=== PATIENT | male | born 1990 | race Caucasian/White ===

== ENCOUNTER 2020-09-03 07:49 | Outpatient (CLI) | payer BC, SELFPAY ==
--- NOTE | 2020-09-03 08:00 | USCV_ITS ---
Gomez Parsons Age: 29 Gender: M : 1990 Exam Date: 09/03/2020 08:16 Ordering Phys: ALLYSSA Arthur APRN Technologist: Leyla Lozada Exam Location: [facility] [place]ication: Abnormal ECG BP: 118 / 78 HR: 60 Rhythm: Sinus Technical Quality: Adequate MEASUREMENTS (Male / Female) Normal Values 2D ECHO LV Diastolic Diameter PLAX 4.0 cm 4.2 - 5.9 / 3.9 - 5.3 cm LV Systolic Diameter PLAX 1.6 cm IVS Diastolic Thickness 1.1 cm 0.6 - 1.0 / 0.6 - 0.9 cm IVS Systolic Thickness 1.7 cm LVPW Diastolic Thickness 1.3 cm 0.6 - 1.0 / 0.6 - 0.9 cm LVPW Systolic Thickness 1.9 cm LV Ejection Fraction 2D Teich 90.1 % LV Ejection Fraction MOD 2C 55.3 % LV Ejection Fraction 2C AL 55.6 % LA Diameter 3.1 cm LA Width 2.7 cm LA Height 5.0 cm RA Width 3.5 cm RA Height 4.8 cm Aorta at Sinotubular Diameter 2.6 cm M-MODE LV Diastolic Diameter MM 5.0 cm 4.2 - 5.9 / 3.9 - 5.3 cm LV Systolic Diameter MM 3.0 cm LV Ejection Fraction MM Teich 71.9 % IVS Diastolic Thickness MM 0.9 cm 0.6 - 1.0 / 0.6 - 0.9 cm IVS Systolic Thickness MM 1.5 cm LVPW Diastolic Thickness MM 0.6 cm 0.6 - 1.0 / 0.6 - 0.9 cm LVPW Systolic Thickness MM 1.5 cm Aortic Annulus Diameter 2.6 cm LA Ao Ratio MM 1.3 MV E Point Septal Separation 0.4 cm DOPPLER AV Peak Velocity 127.0 cm/s LVOT Peak Velocity 100.0 cm/s MV Peak Velocity 90.0 cm/s MV Area PHT 4.5 cm squared Mitral E to A Ratio 2.8 MV E' Velocity 56.5 cm/s Mitral E to MV E' Ratio 5.7 Mitral E to LV E' Lateral Ratio 5.0 Mitral E to LV E' Septal Ratio 6.6 TR Peak Velocity 186.7 cm/s TR Peak Gradient 13.9 mmHg TR Mean Velocity 98.4 cm/s TR Mean Gradient 5.1 mmHg TR Velocity Time Integral 29.1 cm Right Atrial Pressure 3.0 mmHg Pulmonary Artery Systolic Pressu 16.9 mmHg PV Peak Velocity 114.0 cm/s RV Acceleration Time 0.1 s RV Ejection Time 0.3 s RV AcT/ET 0.4 FINDINGS Left Ventricle Normal left ventricular size, systolic function and wall thickness, with no regional wall motion abnormalities. Left ventricular ejection fraction is estimated at 65 %. Normal diastolic function for age. Right Ventricle Normal right ventricular size and systolic function, RVSP 16.9 mmHg. Right Atrium Normal right atrial size. Right atrial pressure estimated at 3 mmHg. Left Atrium Normal left atrial size. Mitral Valve Structurally normal mitral valve. No mitral valve stenosis. Trace mitral valve regurgitation. Aortic Valve Structurally normal trileaflet aortic valve. No aortic valve stenosis. No aortic valve regurgitation. Tricuspid Valve Structurally normal tricuspid valve. Mild tricuspid valve regurgitation. Pulmonic Valve Structurally normal pulmonic valve. No pulmonary valve stenosis. Trace pulmonary valve regurgitation. Pericardium No pericardial effusion. Aorta Normal size aortic root and proximal ascending aorta. Normal- sized inferior vena cava. CONCLUSIONS 1. Normal left ventricular size, systolic function and wall thickness, with no regional wall motion abnormalities. Left ventricular ejection fraction is estimated at 65 %. Normal diastolic function for age. 2. Normal right ventricular size and systolic function. 3. Mild tricuspid valve regurgitation. 4. Normal pulmonary artery pressure. 5. No pericardial effusion or intracardiac masses. 6. No prior similar studies to compare. Ale Cervantes MD (Electronically Signed) Final Date: 05 September 2020 16:22 S
== END 2020-09-03 07:50 | disposition home or self-care (01) ==
LOC: RAD 07:53
PROVIDERS: PCP Nurse Practitioner Family; Visit Provider Nurse Practitioner Family
DX: R94.31 Abnormal electrocardiogram [ECG] [EKG] (principal); I07.1 Rheumatic tricuspid insufficiency
CPT/HCPCS: 80061; 83036; 84439; 84443; 93306

== ENCOUNTER → 2021-04-05 15:00 | Outpatient (BNVA) | payer BC, SELFPAY | PROVIDERS: PCP Nurse Practitioner Family; Visit Provider Nurse Practitioner Family | DX: M25.511 Pain in right shoulder (principal); G89.29 Other chronic pain; M54.2 Cervicalgia | CPT/HCPCS: 73030 ==

== ENCOUNTER 2021-05-24 08:16 | Outpatient (CLI) | payer BC, SELFPAY ==
--- NOTE | 2021-05-24 08:27 | MR_ITS ---
WS: [id number] MRI RIGHT SHOULDER NONCONTRAST TECHNIQUE: Sagittal T2, coronal T1, T2 and proton density imaging. Axial gradient PDE imaging. CLINICAL INFORMATION: M25.511 - Pain in right shoulder COMPARISON: None. FINDINGS: Mild synovial thickening AC joint with slight edema. Mild narrowing of the subacromial space. Mild do wnsloping of the acromion. Normal supraspinatus. Normal infraspinatus. Teres minor is normal. Normal subscapularis. Normal biceps tendon in the bicipital groove. Glenoid labrum is grossly normal. Normal biceps labral anchor. Normal visualized soft tissues. Normal bone marrow signal in the humerus and glenoid. No other signif icant findings. MR/MR shoulder RT wo con* [id number] IMPRESSION: 1. Mild synovial thickening and inflammation at the AC joint with slight edema and mild downsloping acromion. Mild narrowing of the subacromial space. 2. Normal rotator cuff. No acute appearing rotator cuff tears. 3. Normal biceps tendon in the bicipital groove. Normal intra-articular biceps tendon. 4. Normal biceps labral anchor. 5. Glenoid labrum appears grossly normal.
== END 2021-05-24 08:17 | disposition home or self-care (01) ==
LOC: RAD 08:19
PROVIDERS: PCP Nurse Practitioner Family; Visit Provider Nurse Practitioner Family
DX: M25.511 Pain in right shoulder (principal); G89.29 Other chronic pain
CPT/HCPCS: 73221

== ENCOUNTER → 2024-11-19 11:02 | Outpatient (BNVA) | payer BC, SELFPAY | PROVIDERS: PCP Nurse Practitioner Family; Visit Provider Emergency Medicine | DX: J02.9 Acute pharyngitis, unspecified (principal) | CPT/HCPCS: 87071; 87426; 87880 ==